=== PATIENT | male | born 1970 | race Caucasian/White ===

== ENCOUNTER → 2016-12-29 14:02 | Emergency (ER) | payer OTHER ==
[~2016-12-29 14:02] MED LIST: Clindamycin 600 MG IVPREMIX(* 600 MG/50 ML SDV IV ONE; Sulfamethox/Trimethoprim DS 800/160* TAB PO ONE
[2016-12-29 14:14] VITALS: BP 178/112
--- NOTE | 2016-12-29 16:05 | RAD ---
INDICATION: Nail gun injury DIP joint COMPARISON: None TECHNIQUE: AP, lateral, and oblique views were obtained. FINDINGS: There is no definitive acute fracture. There are soft tissue changes about the DIP joint with a mild flexion deformity. There is no foreign body. IMPRESSION: NO FRACTURE OR FOREIGN BODY. SOFT TISSUE INJURY WITH MILD FLEXION DEFORMITY
--- NOTE | 2016-12-29 16:44 | ED ---
Upper Extremity Pain - HPI Summary HPI Summary: Patient presents to the ED with CC of right finger swelling, redness, drainage and pain after sustaining a nail gun to the DIP joint yesterday. He continued to work and washed dishes this afternoon with the finger continually becoming worse and now with erythema extending proximal to the PIP joint without involvement of the MCP. He is able to flex and extend at the MCP and PIP joint without flexion of the DIP. However, upon comparison of the lft and right hand - they appear to be equal in flexion and extension capabilities. He notes to pain extending through the finger, but not involving the MCP joint or hand. Last tetanus August 2015. He denies fevers, sweats and chills. There is a laceration to the lateral side of the index finger which could have necessitated closure, but has been > 12 hours and now with growing infection. 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 - History of Current Complaint Chief Complaint: EDLacSutureRecheck Stated Complaint: FINGER LAC Time Seen by Provider: 12/29/16 14:32 Hx Obtained From: Patient Onset/Duration: Started Days Ago Timing: Constant Severity Initially: Moderate Severity Currently: Moderate Pain Location: Finger Character: Dull, Aching Aggravating Factor(s): Lifting, Flexion, Extension Alleviating Factor(s): Rest Associated Signs & Symptoms: Positive: Swelling, Redness. Negative: Fever, Numbness/Tingling, Nausea, Vomiting Related History: Dominant Hand Right - Risk Factors Non-Orthopedic Risk Factor: Negative DVT Risk Factors: Negative Septic Arthritis Risk Factor: Negative Compartment Syndrome Risk Factors: Pain - Allergies/Home Medications Allergies/Adverse Reactions: Allergies Allergy/AdvReac Type Severity Reaction Status Date / Time No Known Allergies Allergy Verified 04/29/15 14:13 PMH/Surg Hx/FS Hx/Imm Hx Previously Healthy: Yes Cardiovascular History: Reports: Hx Hypertension, Hx Syncope Musculoskeletal History: Reports: Hx Back Problems, Other Musculoskeletal History - foot issues from being on his feet Neurological History: Reports: Hx Developmental Delay - Possible, Other Neuro Impairments/Disorders - Speech impediment - Surgical History Surgery Procedure, Year, and Place: Right knee + hip arthroplasty 2012, tubes in ears as an - Immunization History Date of Tetanus Vaccine: 08/2015 Hx Pertussis Vaccination: No Immunizations Up to Date: Unable to Obtain/Confirm Infectious Disease History: No Infectious Disease History: Denies: History Other Infectious Disease, Traveled Outside the [place] in Last 30 Days - Family History Known Family History: Positive: None - Social History Occupation: Employed Full-time Lives: With Family Alcohol Use: Occasionally Hx Substance Use: No Substance Use Type: Reports: None Hx Tobacco Use: No Smoking Status (MU): Never Smoked Tobacco Have You Smoked in the Last Year: No Review of Systems Constitutional: Negative Negative: Fever, Chills, Fatigue, Skin Diaphoresis ENT: Negative Cardiovascular: Negative Respiratory: Negative Positive: no symptoms reported, see HPI Positive: Arthralgia - right distal index finger Positive: Other - erythema and swelling Neurological: Negative Psychological: Normal All Other Systems Reviewed And Are Negative: Yes Physical Exam Triage Information Reviewed: Yes Vital Signs On Initial Exam: Initial Vitals Temp Pulse Resp BP Pulse Ox 99.1 F 80 18 178/112 100 12/29/16 14:11 12/29/16 14:11 12/29/16 14:11 12/29/16 14:11 12/29/16 14:11 Vital Signs Reviewed: Yes Appearance: Positive: Well-Appearing, Well-Nourished Skin: Positive: Skin Color Reflects Adequate Perfusion, Other - erythema and swelling Head/Face: Positive: Normal Head/Face Inspection Neck: Positive: Supple, No Lymphadenopathy Respiratory/Lung Sounds: Positive: Clear to Auscultation, Breath Sounds Present Cardiovascular: Positive: Normal, RRR, Pulses are Symmetrical in both Upper and Lower Extremities Musculoskeletal: Positive: Normal, Strength/ROM Intact Neurological: Positive: Speech Normal Psychiatric: Positive: Normal AVPU Assessment: Alert - [place] Coma Scale Coma Scale Total: 15 Diagnostics - Vital Signs Vital Signs Temp Pulse Resp BP Pulse Ox 12/29/16 14:11 99.1 F 80 18 178/112 100 - Laboratory Lab Statement: Any lab studies that have been ordered have been reviewed, and results considered in the medical decision making process. Course/Dx - Course Course Of Treatment: Patient arrives to ED with evaluation of right distal index finger erythema and swelling after sustaining an injury from a nail gun yesterday. There is serous fluid drainage along the joint. The area is warm. Xray: IMPRESSION: NO FRACTURE OR FOREIGN BODY. SOFT TISSUE INJURY WITH MILD FLEXION DEFORMITY. Clindamycin 600mg IV given in ED. Rx Bactrim x 10 days. Considered infectious tenosynovitis, however there is no tenderness along the course of the flexor sheath, no symmetric or fusiform enlargement of the affected digit, slightly flexed finger at rest at DIP joint, but this is similar to the contralateral hand, no tenderness along the tendon with passive extension. Considering high risk osteomyelitis - he will need close follow up. He is to follow up with myself in 2 days for a wound recheck. However, if any symptoms become worse he agrees to return to the ED tomorrow. He is given ortho follow up. Patient denies fevers, sweats and chills and denies any systemic symptoms. Wound culture obtained and sent for culture. Will await results. Bactrim given prior to discharge. Care instructions given. - Diagnoses Differential Diagnosis/HQI/PQRI: Positive: Septic Arthritis, Strain, Sprain Provider Diagnoses: Cellulitis of knee Discharge - Discharge Plan Condition: Stable Disposition: HOME Prescriptions: Sulfamethox/Trimethoprim DS* [Bactrim DS 800/160 TAB*] 1 tab PO BID #20 tab MDD 2 Patient Education Materials: Cellulitis (ED) Referrals: Yo Ontiveros MD [Primary Care Provider] - Additional Instructions: Follow up with ME in 2 days HERE in the EMERGENCY ROOM. [phone] If you develop any worsening symptoms prior to Sunday, you need to return to the ED immediately You are at very high risk for worsening infection Keep dressing on until tomorrow afternoon - you may then remove it - soak again in antibacterial soap (rajeev dish soap) or hydrogen peroxide. Then apply antibiotic ointment and re-dress. Call DR. Corona's office today or Sunday morning for appt. You will be placed on Bactrim x 10 day for infection. Do not miss a dose Ibuprofen 600 mg three times daily for pain
== END | disposition home or self-care (01) ==
LOC: ED 14:02
DX: L03.011 Cellulitis of right finger (principal)
CPT/HCPCS: 73140; 87070; 87077; 87186; 87205; 99282; A9270-GY

== ENCOUNTER → 2016-12-31 10:13 | Emergency (ER) | payer OTHER ==
[2016-12-31 10:28] VITALS: BP 160/98
--- NOTE | 2016-12-31 10:50 | ED ---
Skin Complaint - HPI Summary HPI Summary: Patient presents to the ED for a wound recheck. He was seen here 2 days ago by myself and encouraged to follow up today to evaluate for improvement of symptoms. He was seen 2 days ago for: CC of right finger swelling, redness, drainage and pain after sustaining a nail gun to the DIP joint yesterday. He continued to work and washed dishes this afternoon with the finger continually becoming worse and now with erythema extending proximal to the PIP joint without involvement of the MCP. He is able to flex and extend at the MCP and PIP joint without flexion of the DIP. However , upon comparison of the lft and right hand - they appear to be equal in flexion and extension capabilities. He notes to pain extending through the finger, but not involving the MCP joint or hand. Last tetanus August 2015. He denies fevers, sweats and chills. There is a laceration to the lateral side of the index finger which could have necessitated closure, but has been > 12 hours and now with growing infection. 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 Today, he states the erythema and warmth have been resolving. He has more flexion in the right DIP joint and states he is now experiencing less pain. He continues to take the Bactrim with relief of symptoms. MSSA and MRSA both negative at this time. - History of Current Complaint Chief Complaint: EDLacSutureRecheck Time Seen by Provider: 12/31/16 10:24 Stated Complaint: WOUND CK Hx Obtained From: Patient, Family/Forestry Hunter Onset/Duration: Started Days Ago Skin Exposure Onset/Duration: Days Ago Timing: Constant Onset Severity: Mild Current Severity: Mild Pain Intensity: 0 Pain Scale Used: 0-10 Numeric Character: Swelling, Pruritus, Pain Aggravating Symptom(s): Nothing Alleviating Symptom(s): Nothing Associated Signs & Symptoms: Negative Related History: Trauma - Allergy/Home Medications Allergies/Adverse Reactions: Allergies Allergy/AdvReac Type Severity Reaction Status Date / Time No Known Allergies Allergy Verified 04/29/15 14:13 PMH/Surg Hx/FS Hx/Imm Hx Previously Healthy: Yes Cardiovascular History: Reports: Hx Hypertension, Hx Syncope Musculoskeletal History: Reports: Hx Back Problems, Other Musculoskeletal History - foot issues from being on his feet Neurological History: Reports: Hx Developmental Delay - Possible, Other Neuro Impairments/Disorders - Speech impediment - Surgical History Surgery Procedure, Year, and Place: Right knee + hip arthroplasty 2012, tubes in ears as an infant - Immunization History Date of Tetanus Vaccine: 08/2015 Hx Pertussis Vaccination: No Immunizations Up to Date: Unable to Obtain/Confirm Infectious Disease History: No Infectious Disease History: Denies: History Other Infectious Disease, Traveled Outside the [place] in Last 30 Days - Family History Known Family History: Positive: None - Social History Occupation: Employed Full-time Lives: With Family Alcohol Use: Occasionally Hx Substance Use: No Substance Use Type: Reports: None Hx Tobacco Use: No Smoking Status (MU): Never Smoked Tobacco Have You Smoked in the Last Year: No Review of Systems Constitutional: Negative Negative: Fever, Chills, Fatigue Eyes: Negative Cardiovascular: Negative Respiratory: Negative Positive: no symptoms reported, see HPI Musculoskeletal: Negative Positive: Other - see hpi Neurological: Negative All Other Systems Reviewed And Are Negative: Yes Physical Exam Triage Information Reviewed: Yes Vital Signs On Initial Exam: Initial Vitals Temp Pulse Resp BP Pulse Ox 98.2 F 79 16 160/98 98 12/31/16 10:24 12/31/16 10:24 12/31/16 10:24 12/31/16 10:24 12/31/16 10:24 Vital Signs Reviewed: Yes Appearance: Positive: Well-Appearing, Well-Nourished Skin: Positive: Warm, Skin Color Reflects Adequate Perfusion Head/Face: Positive: Normal Head/Face Inspection Eyes: Positive: EOMI, NATALIE, Conjunctiva Clear Neck: Positive: Supple, No Lymphadenopathy Respiratory/Lung Sounds: Positive: Clear to Auscultation, Breath Sounds Present Cardiovascular: Positive: Normal, RRR Musculoskeletal: Positive: Normal, Strength/ROM Intact Neurological: Positive: Sensory/Motor Intact, Alert, Oriented to Person Place, Time, Speech Normal Psychiatric: Positive: Normal AVPU Assessment: Alert - [place] Coma Scale Best Eye Response: 4 - Spontaneous Best Motor Response: 6 - Obeys Commands Best Verbal Response: 5 - Oriented Diagnostics - Vital Signs Vital Signs Temp Pulse Resp BP Pulse Ox 12/31/16 10:24 98.2 F 79 16 160/98 98 - Laboratory Lab Statement: Any lab studies that have been ordered have been reviewed, and results considered in the medical decision making process. Course/Dx - Course Course Of Treatment: Today, he states the erythema and warmth have been resolving. He has more flexion in the right DIP joint and states he is now experiencing less pain. He continues to take the Bactrim with relief of symptoms. MSSA and MRSA both negative at this time. Upon evaluation - the wound appears to be improving. He continues to deny feelings of illness, fevers , sweats or chills. Erythema and warmth have all but resolved, swelling remains and this is likely d/t the sub q fat portruding from the wound which was not able to be sutured and closed d/t high risk infection, over 12 hours since sustained injury and occurring infection. He is given return precautions and understands to return if anything becomes worse. He is currently on day for his abx Bactrim. - Differential Diagnoses - Skin Complaint Differential Diagnoses: Abscess, Cellulitis - Diagnoses Provider Diagnoses: Cellulitis Discharge - Discharge Plan Condition: Stable Disposition: HOME Referrals: Yo Ontiveros MD [Primary Care Provider] - Additional Instructions: Continue with anditbiotics Wrap the finger/hand mario well prior to working After work and on breaks - wash hands very well Continue with bandage for 2 more days, then leave open to air as long as it does not continue to drain Return to the ED if symptoms do not improve or get worse. FINISH THE ENTIRE COURSE OF ANTIBIOTICS, EVEN IF YOU BEGIN TO FEEL BETTER! If you develop redness, streaks of red around the wound, swelling, abnormal drainage or you develop a fever - also if you begin to not be able to bend your finger- you need to come back to the ED right away. Continue with ibuprofen and ice!
--- NOTE | 2017-01-01 10:24 | PN ---
Progress Note - Progress Note Date of Service: 12/29/16 Note: Preliminary results, negative MRSA and s aureus. 1+ pasteurella multocida. On bactrim and patient's wound re-check showed symptoms to be improving. will wait for final culture sensitivities. no further changes required at this time.
== END | disposition home or self-care (01) ==
LOC: ED 10:13
DX: L03.011 Cellulitis of right finger (principal); I10 Essential (primary) hypertension; R62.50 Unspecified lack of expected normal physiological development in childhood

== ENCOUNTER 2017-09-08 10:27 | Emergency (ER) | payer SELFPAY ==
--- NOTE | 2017-09-08 12:16 | ED ---
Upper Extremity Pain - HPI Summary HPI Summary: Pt. is a 47-year who presents to the ER for a right knee injury that occurred roughly 2 weeks ago. Patient states he was in [place] on vacation when he slipped in mud and twisted right knee. Patient has a history of a right femur fracture with internal fixation and his and 13. Patient is concerned he might have messed up hardware. Patient states he's been icing knee and taking ibuprofen. He notes that his right knee is chronically more swollen than the left. Is ambulating with a cane with pain. Symptoms are mild in severity. Walking makes symptoms worse. Rest makes symptoms better. - History of Current Complaint Chief Complaint: EDExtremityLower Stated Complaint: RT KNEE INJURY Time Seen by Provider: 09/08/17 11:30 Hx Obtained From: Patient - Allergies/Home Medications Allergies/Adverse Reactions: Allergies Allergy/AdvReac Type Severity Reaction Status Date / Time No Known Allergies Allergy Verified 04/29/15 14:13 Home Medications: Home Medications Lisinopril TAB* [Prinivil TAB*] 40 mg PO DAILY 09/08/17 [History Confirmed 09/08] metFORMIN* [Glucophage 500 MG TAB *] 500 mg PO BID 09/08/17 [History Confirmed 09/08/17] PMH/Surg Hx/FS Hx/Imm Hx Previously Healthy: Yes Cardiovascular History: Reports: Hx Hypertension, Hx Syncope Musculoskeletal History: Reports: Hx Back Problems, Other Musculoskeletal History - foot issues from being on his feet Neurological History: Reports: Hx Developmental Delay - Possible, Other Neuro Impairments/Disorders - Speech impediment - Surgical History Surgery Procedure, Year, and Place: Right knee + hip arthroplasty 2012, tubes in ears as an - Immunization History Date of Tetanus Vaccine: 08/2015 Infectious Disease History: No Infectious Disease History: Denies: History Other Infectious Disease, Traveled Outside the [place] in Last 30 Days - Family History Known Family History: Positive: None - Social History Alcohol Use: Occasionally Hx Substance Use: No Substance Use Type: Reports: None Hx Tobacco Use: No Smoking Status (MU): Never Smoked Tobacco Have You Smoked in the Last Year: No Review of Systems - ROS Summary Review of Systems Summary: Pt. is a 47 y.o male who since emergency department for a right knee injury that occurred about 2 weeks ago. Patient states he was in [place] with his family 2 weeks ago when he slipped and twisted his right knee. History of femoral fracture with hardware in 2012. Patient states they ice and rested knee and took ibuprofen and swelling to in improved. He presents today because pain persists and he is to return back to work on Sunday. Walking makes symptoms worse. Rest makes symptoms better. Patient states he's emanating with a cane. Positive: Other - Right knee pain and swelling Negative: Weakness, Paresthesia, Numbness All Other Systems Reviewed And Are Negative: Yes Physical Exam Triage Information Reviewed: Yes Vital Signs On Initial Exam: Initial Vitals Temp Pulse Resp BP Pulse Ox 98.1 F 79 16 0/0 100 09/08/17 10:33 09/08/17 10:33 09/08/17 10:33 09/08/17 10:33 09/08/17 10:33 Vital Signs Reviewed: Yes Appearance: Positive: Well-Appearing - Pt. sitting in wheelchair in NAD. Family present. Skin: Positive: Warm, Dry Head/Face: Positive: Normal Head/Face Inspection Eyes: Positive: Normal Neck: Positive: Supple Musculoskeletal: Positive: Other - Left lower extremities are grossly intact with good palpable pedal pulse. No calf edema or tenderness. Mild diffuse edema to the right knee when compared to left, patient states this is chronic, no increased warmth or overlying redness. Full range of motion with pain. Palpable tenderness along the lateral aspect. No increased laxity. Neurological: Positive: Normal, CN Intact II-III Diagnostics - Vital Signs Vital Signs Temp Pulse Resp BP Pulse Ox 09/08/17 10:33 98.1 F 79 16 0/0 100 - Laboratory Lab Statement: Any lab studies that have been ordered have been reviewed, and results considered in the medical decision making process. Course/Dx - Course Course Of Treatment: Pt presenting for a right knee injury. X-rays show surgical changes without acute fracture dislocation, reading per radiology. Results were discussed with patient. Recommend he follow up with orthopedics if symptoms continue. Advised to continue ice and elevation and NSAIDs for pain. Patient understands and agrees with plan. Work excuse given. - Diagnoses Differential Diagnosis/HQI/PQRI: Positive: Contusion, Fracture (Closed), Strain , Sprain Provider Diagnoses: Knee sprain Discharge - Sign-Out/Discharge Documenting (check all that apply): Discharge/Admit/Transfer - Discharge Plan Condition: Good Disposition: HOME Patient Education Materials: Knee Sprain (ED) Forms: *Work Release Referrals: Nhan Weldon MD [Medical Doctor] - Ronnie Costa MD [Primary Care Provider] - Additional Instructions: Schedule a follow up appointment with orthopedics if symptoms persist Ice and elevate Can wear brace for comfort NSAIDS for pain as directed Return to ER if symptoms change or worsen - Billing Disposition and Condition Condition: GOOD Disposition: Home
--- NOTE | 2017-09-08 12:44 | RAD ---
INDICATION: Right knee pain in a patient with a history of right femoral prosthesis COMPARISON: None TECHNIQUE: 4 view radiograph of the right knee. FINDINGS: Post surgical changes include an anatomically aligned right femoral prosthesis extending to the level the femoral condyles. There are 3 intact medullary screws spanning the distal right femoral condyles. Degenerative changes of the right knee include narrowing of the lateral greater than medial compartments. The patella is thin. There are bony osteophytes along the lateral margin of the right femoral condyle that are well-circumscribed and unlikely to be acute. There is bony proliferation overlying the distal right femoral metaphysis, chronic in appearance. IMPRESSION: Degenerative and postoperative findings as described above without definite radiographic evidence of acute fracture. If the patient's symptoms persist, follow-up imaging is recommended.
[2017-09-08 13:27] VITALS: BP 174/0
== END 2017-09-08 13:27 | disposition home or self-care (01) ==
LOC: ED 10:27
DX: S83.91XA Sprain of unspecified site of right knee, initial encounter (principal); W01.0XXA Fall on same level from slipping, tripping and stumbling without subsequent striking against object, initial encounter; Y92.9 Unspecified place or not applicable; I10 Essential (primary) hypertension
CPT/HCPCS: 99282

== ENCOUNTER → 2018-07-29 09:27 | Day surgery (SDC) | payer BC, MEDICARE ==
[~2018-07-29 09:27] MED LIST changes: +Acetaminophen TAB* 325 MG ONE; +Acetaminophen TAB* 325 MG PO ONE; +Acetaminophen TAB* 325 MG PO PRN; +Buffered Lidocaine 1% SYRIN* 1 ML/SYRINGE INTRADERM ONE; +Bupivacaine 0.25% EPI 200,000* 30 ML SDV ONE; +Cisatracurium* 2 MG/ML MDV 5 ML ONE; -Clindamycin 600 MG IVPREMIX(* 600 MG/50 ML SDV IV ONE; +Dexamethasone IV* 4 MG/ML 1 ML (4 MG) ONE; +DiMENhydriNATE IV* 50 MG/ML VIAL IV PUSH PRN; +EPHEDrine (Pressors)* 50 MG/ML VIAL ONE; +Famotidine IV* 10 MG/ML 2 ML (20 mg) ONE; +Gabapentin CAP(*) 300 MG ONE; +Gabapentin CAP(*) 300 MG PO ONE; +HYDROcodone/ACETAMIN 5-325 MG* 1 TAB ONE; +HYDROcodone/ACETAMIN 5-325 MG* 1 TAB PO PRN; +Ketorolac INJ* 30 MG/ML 1 ML VIAL ONE; +Lactated Ringers 1000 ML Bag* 1,000 ML IV SCH; +Metoprolol Tartrate IV* 1 MG/ML 5 ML VIAL ONE; +Midazolam* 1 MG/ML 2 ML VIAL (2 MG) ONE; +Naloxone* 0.4 MG/ML 1 ML VIAL IV PRN; +Ondansetron INJ* 2 MG/ML VIAL IV PRN; +Ondansetron INJ* 2 MG/ML VIAL ONE; +PROCHLORPERAZINE INJ 5 MG/ML 2 ML VIAL IV PRN; +PROCHLORPERAZINE INJ 5 MG/ML 2 ML VIAL ONE; +Propofol* 10 MG/ML 20 ML BTL ONE; -Sulfamethox/Trimethoprim DS 800/160* TAB PO ONE; +ceFAZolin 2 GM PREMIX in ORs 2 GM/50 ML BAG IVPB ONE; +diPHENhydraMINE IV* 50 MG/ML 1 ml VIAL (BENADRYL) IV PRN; +fentaNYL* 50 MCG/ML 2 ML VIAL (100 MCG VIAL) ONE
--- NOTE | 2018-07-29 13:50 | BRIEFOPN ---
Brief Operative Note - Surgery Procedures: OPERATIVE REPORT Pre-op: Right upper abdominal pain, cholelithiasis Post-Op: Same Procedure:Laparoscopic cholecystectomy Surgeon: MD Nicolette Asst: Heavenly Canas MD Anes: general with local , Dr. Gray IVF:1 liter of crystalloid EBL:min Specimen: Gallbladder Drain: none Wound: 3 To PACU
[2018-07-29] MEDS: fentaNYL* 50 MCG/ML 2 ML VIAL (100 MCG VIAL) IV PRN ×2 (14:32→14:59)
[2018-07-29 16:03] VITALS: BP 135/88
--- NOTE | 2018-07-29 21:38 | OP ---
DATE OF OPERATION: 07/29/18 - [facility] DATE OF : 68 SURGEON: Joaquin Will MD [facility]OSPICE COMMUNITY LIAISON: Rg Canas MD ANESTHESIOLOGIST: Dr. Gray. ANESTHESIA: General with local. PRE-OP DIAGNOSES: 1. Right upper quadrant abdominal pain. 2. Cholelithiasis. POST-OP DIAGNOSES: 1. Right upper quadrant abdominal pain. 2. Cholelithiasis. OPERATIVE PROCEDURE: Laparoscopic cholecystectomy. ESTIMATED BLOOD LOSS: Minimal. IV FLUIDS: 1 L of crystalloid. SPECIMEN: Gallbladder. DRAINS: None. WOUND CLASSIFICATION: 3 due to some spilled bile. FINDINGS: The patient had a markedly distended gallbladder with some chronic inflammation noted. There were multiple small stones as well as a very large gallstone in the neck of the gallbladder, necessitating enlarging the umbilical incision to remove the gallbladder from the umbilical port site. DESCRIPTION OF PROCEDURE: Written informed consent was obtained, the abdomen was marked with indelible ink and preoperative antibiotics were administered. The patient was taken to the operating room and placed in the supine position. Sequential compression devices and a warming blanket were applied. General anesthesia was administered and the abdomen was prepped and draped in the usual sterile fashion. Time-out verification was completed. Initially, a small transverse incision was made just above the umbilicus and the peritoneal cavity was entered under direct vision. The abdomen was insufflated to 15 mmHg and an 11-mm epigastric port was placed and two 5-mm ports were placed on the right side of the abdominal wall. There was a large amount of omentum up over the gallbladder and liver and this was taken down with graspers. There was some omentum adherent to the markedly distended gallbladder. It did not appear to be acutely inflamed, but was mildly thick-walled and had a greenish- bluish color to the wall itself. The wall did not appear to be thickened, however. After taking the omental adhesions down into the infundibular area, we were able to grasp the gallbladder and elevate it up over the liver bed. With care through some thickened peritoneum along the medial and lateral aspects of the gallbladder, I was able to identify what appeared to be the cystic duct and cystic artery as I entered the gallbladder. I took a considerable portion of the inferior part of the gallbladder off the liver bed using the critical view technique to assure myself of these structures. The cystic duct appeared to be of normal caliber. The cystic duct was then triply clipped and divided. Likewise, the cystic artery was clipped and divided. The gallbladder was removed from the liver bed. It was somewhat intrahepatic throughout. There was some bleeding from the liver bed and this was controlled with cautery. It also should be noted that I entered the gallbladder upon grasping this. As we removed the gallbladder from the liver bed, there was some spillage of bile, but no stones were lost. We then were able to place the gallbladder into the Endo Catch bag and irrigate the liver bed and hemostasis was assured. We then removed the gallbladder from the umbilical incision. Here, it was noted that the gallbladder was markedly distended and was markedly packed with stones and it was necessary to enlarge the vertical fascial incision superiorly to remove the gallbladder. It was evident that there was a large amount of small gravely type gallstones as well as a larger 3 cm gallstone within the neck of the gallbladder, thus necessitating a larger incision in the fascia. We changed our gloves and irrigated the wound thoroughly. The umbilical incision was closed with interrupted 0 Vicryl suture. The abdomen was insufflated and we placed the camera through the upper 11-mm port and assured ourselves that there was no further bleeding or problem. All ports were removed under direct vision of the camera. All 4 incisions were then stapled using the stapling device. Dry sterile dressings were applied. The patient tolerated the procedure well and was taken to the recovery room in stable condition. [id number]/[facility] #: [id number] LILIANE
== END | disposition home or self-care (01) ==
LOC: OR 09:27
PROVIDERS: ATTEND Surgery
DX: K80.10 Calculus of gallbladder with chronic cholecystitis without obstruction (principal); E11.9 Type 2 diabetes mellitus without complications; Z79.84 Long term (current) use of oral hypoglycemic drugs; I10 Essential (primary) hypertension; M19.90 Unspecified osteoarthritis, unspecified site
CPT/HCPCS: 88304; A9270-GY; J0690; J0780; J1100; J1885; J2250; J2405; J2704; J3010; J3490